=== PATIENT | female | born 1930 | race Caucasian/White ===

== ENCOUNTER 2016-08-26 09:57 | Inpatient (IN) | payer OTHER ==
[~2016-08-26] VITALS: Ht 147.3 cm; Wt 63.5 kg
[~2016-08-26 09:57] MED LIST: ASPIR LOW81 MG PO; ATIVAN0.5 M1 PO; CLINDAMYCIN300 M1 PO; COLACE100 MG PO; DIOVAN40 MG PO; FERROUS SULFAT325 M2 PO; FUROSEMIDE20 MG; FUROSEMIDE20 MG PO; FUROSEMIDE40 MG PO; HYDRALAZINE HCL25 MG; HYDRALAZINE HCL25 MG PO; L40 PO; LAC PO; LASIX20 MG PO; LEVAQUIN750 MG PO; MEVACOR40 MG PO; PLA75 PO; POTASSIUM CHLO10 MEQ; POTASSIUM CHLO20 ME1 PO; PRILOSEC20 MG PO; PRILOSEC40 MG PO; PROVENTIL0.09 MG/A1; Q-PAP ES500 M1 PO; QPAP; SOD1 PO; VITC PO; [UNRECOGNIZED DRUG - OTHER]; [UNRECOGNIZED DRUG - OTHER]
[2016-08-26 11:08] LABS: BASOPHIL % 0.4 % (0-2); PLATELET COUNT 270 x10^3mcL (130-400); RED CELL DISTRIBUTION WIDTH 14.5 % (11.5-14.5)
[2016-08-26 11:12] LABS: UA SPECIFIC GRAVITY 1.015 (1.005-1.035); microscopic required? YES; urine erythrocyte NEGATIVE (NEGATIVE)
[2016-08-26 11:21] LABS: CALCIUM 8.2 mg/dL (8.5-10.1); CARBON DIOXIDE 20.2 mmol/L (21-32); CHLORIDE SERUM 95 mmol/L (98-107); GLUCOSE SERUM 92 mg/dL (74-106); POTASSIUM SERUM 4.4 mmol/L (3.5-5.1); SODIUM SERUM 126 mmol/L (136-145)
[2016-08-26 11:30] LABS: ALBUMIN 3.5 g/dL (3.4-5.0); ALKALINE PHOSPHATASE 131 U/L (46-116); ALT/SGPT 17 U/L (14-59); AST/SGOT 23 U/L (15-37); BILIRUBIN TOTAL 1.25 mg/dL (0.20-1.00); TOTAL PROTEIN, SERUM 7.1 g/dL (6.4-8.2)
[2016-08-26 11:36] LABS: CK-MB 2.3 ng/mL (0-3.6)
[2016-08-26] MEDS ORDERED: CLOPIDOGREL75 M1 PO (13:14)
[2016-08-26] MEDS ORDERED: GOOD SENSE OMEP20 MG PO (13:14)
[2016-08-26] MEDS ORDERED: COLACE100 MG PO (13:14)
[2016-08-26] MEDS ORDERED: BENICAR HCT1 TAB PO (13:14)
[2016-08-26] MEDS ORDERED: HYDRALAZINE HCL25 MG PO (13:14)
[2016-08-26] MEDS ORDERED: FUROSEMIDE40 MG PO (13:14)
[2016-08-26] MEDS ORDERED: LOVASTATIN40 MG PO (13:15)
[2016-08-26] MEDS ORDERED: POTASSIUM CHLO20 ME1 PO (13:15)
[2016-08-26 14:02] VITALS: BP 122/67
[2016-08-26 14:11] VITALS: Ht 147.3 cm; Wt 63.5 kg
[2016-08-26 14:30] LABS: MAGNESIUM 2.2 mg/dL (1.8-2.4); PHOSPHOROUS 5.8 mg/dL (2.5-4.9)
[2016-08-26 14:33] LABS: T3 TOTAL 0.73 ng/mL
[2016-08-26 14:48] LABS: CHOLESTEROL/HDL RATIO 1.8
[2016-08-26 15:05] LABS: FREE T4 1.32 ng/dL (0.76-1.46); FREE THYROXINE INDEX 1.8 ug/dL (1.4-4.5); T4(THYROXINE) 4.8 ug/dL (4.7-13.3)
[2016-08-26 16:15] LABS: CARBON DIOXIDE 23.7 mmol/L (21-32); CHLORIDE SERUM 95 mmol/L (98-107); CREATININE SERUM 1.2 mg/dL (0.6-1.0); GLUCOSE SERUM 149 mg/dL (74-106); POTASSIUM SERUM 4.3 mmol/L (3.5-5.1); SODIUM SERUM 127 mmol/L (136-145)
[2016-08-26] MEDS ORDERED: ISOSORBIDE MONO30 MG PO (16:39)
[2016-08-26 17:01] VITALS: BP 123/56
[2016-08-26 21:47] VITALS: BP 135/48
[2016-08-27 02:45] VITALS: BP 136/49
[2016-08-27 05:32] VITALS: BP 103/43
[2016-08-27 06:06] LABS: BASOPHIL % 0.3 % (0-2); PLATELET COUNT 235 x10^3mcL (130-400)
[2016-08-27 06:32] LABS: CALCIUM 8.4 mg/dL (8.5-10.1); CARBON DIOXIDE 25.3 mmol/L (21-32); CHLORIDE SERUM 97 mmol/L (98-107); GLUCOSE SERUM 81 mg/dL (74-106); PHOSPHOROUS 3.6 mg/dL (2.5-4.9); POTASSIUM SERUM 4.7 mmol/L (3.5-5.1); SODIUM SERUM 131 mmol/L (136-145)
[2016-08-27 06:40] LABS: RED CELL DISTRIBUTION WIDTH 14.9 % (11.5-14.5)
[2016-08-27 09:44] VITALS: BP 107/58
[2016-08-27 16:56] VITALS: BP 113/49
[2016-08-27 21:24] VITALS: BP 126/58
[2016-08-28 05:41] VITALS: BP 112/60
[2016-08-28 06:28] LABS: CALCIUM 8.1 mg/dL (8.5-10.1); CARBON DIOXIDE 24.4 mmol/L (21-32); CHLORIDE SERUM 97 mmol/L (98-107); GLUCOSE SERUM 91 mg/dL (74-106); POTASSIUM SERUM 3.6 mmol/L (3.5-5.1); SODIUM SERUM 135 mmol/L (136-145)
[2016-08-28 07:31] LABS: BASOPHIL % 0.3 % (0-2); PLATELET COUNT 239 x10^3mcL (130-400)
[2016-08-28 07:32] LABS: RED CELL DISTRIBUTION WIDTH 14.9 % (11.5-14.5)
[2016-08-28 07:40] VITALS: BP 120/60
[2016-08-28 10:04] VITALS: BP 120/60
[2016-08-28] MEDS ORDERED: CIPRO250 MG PO (10:06)
[2016-08-28] MEDS ORDERED: LAC PO (10:07)
[2016-08-28 10:24] VITALS: BP 120/60
[2016-08-28] MEDS ORDERED: ROBDML PO (12:05)
== END 2016-08-28 13:38 | disposition home or self-care (01) | DRG 291 ==
LOC: ED 09:57 → DU 13:06
PROVIDERS: Emergency Medicine; ADMIT Family Medicine
DX: I11.0 Hypertensive heart disease with heart failure (principal); N17.0 Acute kidney failure with tubular necrosis; N39.0 Urinary tract infection, site not specified; E87.1 Hypo-osmolality and hyponatremia; I50.43 Acute on chronic combined systolic (congestive) and diastolic (congestive) heart failure; I35.1 Nonrheumatic aortic (valve) insufficiency; M41.9 Scoliosis, unspecified; E83.39 Other disorders of phosphorus metabolism; E78.5 Hyperlipidemia, unspecified; D63.8 Anemia in other chronic diseases classified elsewhere; Z68.29 Body mass index [BMI] 29.0-29.9, adult; Z99.81 Dependence on supplemental oxygen; Z95.0 Presence of cardiac pacemaker
CPT/HCPCS: 83880; 84439; 97110-GP; 97116-GP; 97530-GP; J0696; J1940; J7620; Q0092

== ENCOUNTER 2016-10-02 14:51 | Inpatient (IN) | payer OTHER ==
[~2016-10-02] VITALS: Ht 137.2 cm; Wt 66.2 kg
[~2016-10-02 14:51] MED LIST changes: +BENICAR HCT1 TAB PO; +CIPRO250 MG PO; +CLOPIDOGREL75 M1 PO; +GOOD SENSE OMEP20 MG PO; +ISOSORBIDE MONO30 MG PO; +LOVASTATIN40 MG PO; +ROBDML PO
[2016-10-02 15:56] LABS: BASOPHIL % 1.1 % (0-2); PLATELET COUNT 284 x10^3mcL (130-400); RED CELL DISTRIBUTION WIDTH 14.1 % (11.5-14.5)
[2016-10-02 16:19] LABS: ALKALINE PHOSPHATASE 141 U/L (46-116); ALT/SGPT 14 U/L (14-59); AST/SGOT 24 U/L (15-37); BILIRUBIN TOTAL 1.4 mg/dL (0.20-1.00); CARBON DIOXIDE 23.3 mmol/L (21-32); CHLORIDE SERUM 91 mmol/L (98-107); CREATININE SERUM 1.2 mg/dL (0.6-1.0); GLUCOSE SERUM 119 mg/dL (74-106); POTASSIUM SERUM 4.5 mmol/L (3.5-5.1); SODIUM SERUM 125 mmol/L (136-145); TOTAL PROTEIN, SERUM 7.1 g/dL (6.4-8.2)
[2016-10-02 16:26] LABS: ALBUMIN 3.3 g/dL (3.4-5.0); CHOLESTEROL 51 mg/dL (<200); HDL CHOLESTEROL 24 mg/dL (40-60)
[2016-10-02 18:39] VITALS: BP 76/40
[2016-10-02 18:48] VITALS: Ht 137.2 cm; Wt 66.2 kg
[2016-10-02 19:01] LABS: FREE T4 1.33 ng/dL (0.76-1.46); FREE THYROXINE INDEX 2.2 ug/dL (1.4-4.5); T4(THYROXINE) 5.6 ug/dL (4.7-13.3)
[2016-10-02 19:02] LABS: T3 TOTAL 0.67 ng/mL
[2016-10-02 19:25] LABS: microscopic required? NO
[2016-10-02 19:33] LABS: urine erythrocyte NEGATIVE (NEGATIVE)
[2016-10-02 20:24] LABS: CHOLESTEROL/HDL RATIO 2.1
[2016-10-02 20:59] VITALS: BP 84/37
[2016-10-02 22:00] VITALS: BP 86/52
[2016-10-03 06:08] LABS: BASOPHIL % 0.9 % (0-2); PLATELET COUNT 256 x10^3mcL (130-400)
[2016-10-03 06:14] VITALS: BP 95/58
[2016-10-03 06:25] LABS: RED CELL DISTRIBUTION WIDTH 15.7 % (11.5-14.5)
[2016-10-03 06:35] LABS: CALCIUM 8.4 mg/dL (8.5-10.1); CARBON DIOXIDE 23.5 mmol/L (21-32); CHLORIDE SERUM 91 mmol/L (98-107); CREATININE SERUM 1.3 mg/dL (0.6-1.0); GLUCOSE SERUM 99 mg/dL (74-106); MAGNESIUM 1.9 mg/dL (1.8-2.4); PHOSPHOROUS 4.1 mg/dL (2.5-4.9); POTASSIUM SERUM 3.9 mmol/L (3.5-5.1); SODIUM SERUM 125 mmol/L (136-145)
[2016-10-03 10:17] VITALS: BP 103/64
[2016-10-03 17:56] VITALS: BP 98/40
[2016-10-03 21:38] VITALS: BP 115/47
[2016-10-04 05:39] VITALS: BP 95/60
[2016-10-04 08:18] LABS: BASOPHIL % 0.7 % (0-2); PLATELET COUNT 266 x10^3mcL (130-400)
[2016-10-04 08:19] LABS: RED CELL DISTRIBUTION WIDTH 15.4 % (11.5-14.5)
[2016-10-04 08:35] LABS: CALCIUM 8.7 mg/dL (8.5-10.1); CHLORIDE SERUM 93 mmol/L (98-107); CREATININE SERUM 1.4 mg/dL (0.6-1.0); GLUCOSE SERUM 105 mg/dL (74-106); MAGNESIUM 2.3 mg/dL (1.8-2.4); SODIUM SERUM 130 mmol/L (136-145)
[2016-10-04 09:22] VITALS: BP 93/58
[2016-10-04 14:00] VITALS: BP 91/44
[2016-10-04 17:37] VITALS: BP 106/53
[2016-10-04 21:26] VITALS: BP 98/64
[2016-10-05 06:10] VITALS: BP 106/45
[2016-10-05 06:47] LABS: BASOPHIL % 0.5 % (0-2); PLATELET COUNT 247 x10^3mcL (130-400)
[2016-10-05 07:06] LABS: CALCIUM 8.6 mg/dL (8.5-10.1); CARBON DIOXIDE 26.5 mmol/L (21-32); CHLORIDE SERUM 95 mmol/L (98-107); CREATININE SERUM 1.1 mg/dL (0.6-1.0); GLUCOSE SERUM 83 mg/dL (74-106); POTASSIUM SERUM 3.2 mmol/L (3.5-5.1); SODIUM SERUM 132 mmol/L (136-145)
[2016-10-05 09:36] VITALS: BP 115/71
[2016-10-05 13:31] VITALS: BP 114/62
[2016-10-05 17:54] VITALS: BP 99/44
[2016-10-05 17:57] VITALS: BP 94/50
[2016-10-05 20:52] VITALS: BP 105/63
[2016-10-06 05:53] VITALS: BP 104/67
[2016-10-06 06:52] LABS: BASOPHIL % 0.7 % (0-2); PLATELET COUNT 244 x10^3mcL (130-400)
[2016-10-06 06:55] LABS: RED CELL DISTRIBUTION WIDTH 15.1 % (11.5-14.5)
[2016-10-06 06:59] LABS: CALCIUM 8.3 mg/dL (8.5-10.1); CARBON DIOXIDE 25.4 mmol/L (21-32); CHLORIDE SERUM 95 mmol/L (98-107); GLUCOSE SERUM 80 mg/dL (74-106); POTASSIUM SERUM 3.5 mmol/L (3.5-5.1); SODIUM SERUM 132 mmol/L (136-145)
[2016-10-06 09:50] VITALS: BP 121/74
[2016-10-06] MEDS ORDERED: FLO4 PO (13:08)
[2016-10-06] MEDS ORDERED: COL100 PO (13:09)
[2016-10-06] MEDS ORDERED: FIORICET1 CAP PO (13:10)
[2016-10-06 13:40] VITALS: BP 98/55
[2016-10-06 14:05] VITALS: BP 121/74
== END 2016-10-06 15:18 | disposition home health service (06) | DRG 291 ==
LOC: ED 14:51 → DU 16:52 → MU 10-06 11:30
PROVIDERS: Emergency Medicine; ADMIT Family Medicine
DX: I11.0 Hypertensive heart disease with heart failure (principal); N17.0 Acute kidney failure with tubular necrosis; E87.1 Hypo-osmolality and hyponatremia; E44.0 Moderate protein-calorie malnutrition; I50.43 Acute on chronic combined systolic (congestive) and diastolic (congestive) heart failure; R51 Headache; J44.9 Chronic obstructive pulmonary disease, unspecified; I48.2 Chronic atrial fibrillation; I35.0 Nonrheumatic aortic (valve) stenosis; I25.10 Atherosclerotic heart disease of native coronary artery without angina pectoris; I27.2 Other secondary pulmonary hypertension; E80.6 Other disorders of bilirubin metabolism; D63.8 Anemia in other chronic diseases classified elsewhere; E66.9 Obesity, unspecified; Z68.35 Body mass index [BMI] 35.0-35.9, adult; Z86.73 Personal history of transient ischemic attack (TIA), and cerebral infarction without residual deficits; Z95.0 Presence of cardiac pacemaker; Z99.81 Dependence on supplemental oxygen
CPT/HCPCS: 36600; 83880; 84439; 94150; J1940; J2270; J2405; J7030; Q0092

== ENCOUNTER 2016-10-13 10:43 | Inpatient (IN) | payer OTHER ==
[~2016-10-13] VITALS: Ht 137.2 cm; Wt 72.1 kg
[~2016-10-13 10:43] MED LIST changes: +COL100 PO; +FIORICET1 CAP PO; +FLO4 PO
--- NOTE | 2016-10-13 11:02 | NUR ---
DR. GRAHAM PERFORMED MSE
[2016-10-13 11:20] LABS: BASOPHIL % 0.9 % (0-2); PLATELET COUNT 274 x10^3mcL (130-400)
--- NOTE | 2016-10-13 11:20 | NUR ---
PT TO CT [facility]IA [facility]; MEDICATED WITH ZOFRAN AND FENTANYL PRIOR
--- NOTE | 2016-10-13 11:36 | NUR ---
PT RETURNED FROM CT REPORTS SOME PAIN RELIEF AT THIS TIME, NO LONGER RESTLESS, INTIATED CALCIUM GLUCONATE IVPB FOR HELP WITH MUSCLE CRAMPING AND SPASMS
[2016-10-13 11:49] LABS: ALBUMIN 3.4 g/dL (3.4-5.0); ALKALINE PHOSPHATASE 117 U/L (46-116); ALT/SGPT 24 U/L (14-59); AST/SGOT 31 U/L (15-37); BILIRUBIN TOTAL 1.35 mg/dL (0.20-1.00); CALCIUM 8.3 mg/dL (8.5-10.1); CARBON DIOXIDE 17.9 mmol/L (21-32); CHLORIDE SERUM 90 mmol/L (98-107); CREATININE SERUM 2.3 mg/dL (0.6-1.0); GLUCOSE SERUM 120 mg/dL (74-106); MAGNESIUM 2.5 mg/dL (1.8-2.4); TOTAL PROTEIN, SERUM 6.9 g/dL (6.4-8.2)
--- NOTE | 2016-10-13 11:50 | NUR ---
PT SLEEPING, EASILY AROUSABLE, NO ACUTE DISTRESS, PT CALM AND APPEARS COMFORTABLE, FAMILY AT BEDSIDE
[2016-10-13 12:01] LABS: HDL CHOLESTEROL 27 mg/dL (40-60); POTASSIUM SERUM 5.6 mmol/L (3.5-5.1); SODIUM SERUM 123 mmol/L (136-145)
[2016-10-13 12:09] LABS: CHOLESTEROL 46 mg/dL (<200)
--- NOTE | 2016-10-13 13:11 | NUR ---
PT MEDICATED PT PER ORDER WITH KAYEXALATE AND D50 WITH INSULIN FOR ELEVATED K+ LEVEL, PT IV PATENT, FLUSHES WITH EASE AND BLOOD RETURN NOTED IN IV CANNULA, PT REPORTS DISCOMFORT AT IV SITE, TOLD PT I COULD START A NEW IV AND D/C CURRENT ONE BUT PT REFUSED; EDUCATED PT ABOUT DISCORT WITH D50 AMP, PT TOLERATED, NO S/S INFILTRATION OR REDNESS
--- NOTE | 2016-10-13 13:13 | NUR ---
REPORT RECEIVED FROM HEMA Reich RN, AND CARE ASSUMED FOR THIS PT.
[2016-10-13] MEDS ORDERED: BENICAR HCT1 TAB PO ×2 (13:19→13:25)
[2016-10-13] MEDS ORDERED: HYDRALAZINE HCL25 MG PO (13:19)
[2016-10-13] MEDS ORDERED: GOOD SENSE OMEP20 MG PO (13:19)
[2016-10-13] MEDS ORDERED: CLOPIDOGREL75 M1 PO (13:20)
[2016-10-13] MEDS ORDERED: DOC-Q-LACE100 MG PO (13:20)
[2016-10-13] MEDS ORDERED: LASIX40 MG PO (13:20)
[2016-10-13] MEDS ORDERED: KLOR-CON20 MEQ PO (13:22)
[2016-10-13] MEDS ORDERED: TAMSULOSIN HYD0.4 M1 PO (13:22)
[2016-10-13] MEDS ORDERED: LOVASTATIN40 MG PO (13:23)
[2016-10-13] MEDS ORDERED: MELATONIN3 MG PO (13:23)
--- NOTE | 2016-10-13 13:27 | NUR ---
PT HYPOTENSIVE, DR. GRAHAM NOTIFIED, VERBAL ORDER FOR 250ML NS BOLUS; INITIATED BOLUS, PT ASSISTED ONTO BED JULIAN FOR BM
[2016-10-13 13:50] LABS: PHOSPHOROUS 5.2 mg/dL (2.5-4.9)
--- NOTE | 2016-10-13 13:53 | NUR ---
D/C IV TO LEFT HAND DUE TO COMPLAINT OF PAIN, NO S/S INFILTRATION; INITIATED NEW IV TO RIGHT HAND
[2016-10-13 13:56] LABS: CHOLESTEROL/HDL RATIO 1.7
--- NOTE | 2016-10-13 13:56 | NUR ---
CALLED TO GIVE NEIL REPORT, STATES THAT SHE WILL CALL BACK
[2016-10-13 13:58] LABS: T3 TOTAL 0.51 ng/mL
[2016-10-13 13:59] LABS: FREE T4 1.4 ng/dL (0.76-1.46); FREE THYROXINE INDEX 2.2 ug/dL (1.4-4.5); T4(THYROXINE) 5.7 ug/dL (4.7-13.3)
--- NOTE | 2016-10-13 14:06 | NUR ---
NOTIFIED DR. GRAHAM OF BP AFTER 250ML NS BOLUS, OKAY FOR PT TO GO UPSTAIRS PER DR. GRAHAM, AWAITING CALL BACK FROM RN FOR REPORT
--- NOTE | 2016-10-13 14:49 | NUR ---
PT HAD LARGE, LOOSE BROWN BOWEL MOVEMENT IN BED. PT CLEANED, NEW GOWN AND SHEET PLACED W/ CHUCKS UNDER PT. NO SKIN BREAKDOWN NOTED TO PERINEUM WHILE CLEANING.
--- NOTE | 2016-10-13 14:55 | NUR ---
REPORT TO [facility] CAN TO ASSUME CARE OF PT, PT TO BE TRANSFERRED TO ROOM 244A
--- NOTE | 2016-10-13 14:55 | NUR ---
RECEIVED PT FROM ED VIA [employer], CAME IN DUE TO HEADACHE AND BODY ACHES. AAOX4. C/O 11/21 HEADACHE. MILD SOB NOTED, ON 2LPM/NC, O2 SAT=97%, LUNG SOUNDS DIMINISHED ON THE BASES. DENIES CHEST PAIN/PRESSURE, AFIB ON THE MONITOR. W/ LEFT UPPER CHEST PACEMAKER. DENIES ABDOMINAL PAIN/NAUSEA/VOMITING. W/ LOOSE BM'S, PT HAD KAYEXALATE AT ED. W/ DARK DISCOLORATION AND SCRATCHES ON BUE, BLE AND CHEST AREA. SIDE RAILS UPX2. CALL LIGHT ON REACH. HOB ELEVATED AT 40 DEG. ENDORSED
--- NOTE | 2016-10-13 14:55 | NUR ---
RECEIVED PT FROM ED. PT CAME IN WITH HEADACHE AND BODY ACHES. PT IS A/OX4. MILD SOB NOTED ON 2 L NC, 02 SAT AT 97 %. LUNGS DIMINISHED ON BASES. PT DENIES CHEST PAIN AT THIS TIME. TELE 44, AFIB ON MONITOR WITH LEFT UPPER CHEST PACEMAKER. PT HAD LOOSE BM DUE TO THE KAYEXALATE THAT WAS EVEN TO HER IN THE ER. WILL CONTINUE PLAN OF CARE.
--- NOTE | 2016-10-13 15:21 | NUR ---
DR. SIDHU MADE AWARE THAT 1ST READING OF BP=83/46 (MAP=64), 2ND READING BP=91/41 (MAP=61) AND 3RD READING BP=85/49 (MAP=61).
[2016-10-13 15:23] VITALS: BP 91/41
[2016-10-13 15:31] VITALS: Ht 137.2 cm; Wt 72.1 kg
--- NOTE | 2016-10-13 15:38 | NUR ---
DR. SIDHU AT BEDSIDE AND MADE AWARE THAT LACTIC ACID=3.6.
[2016-10-13 17:19] LABS: CALCIUM 8.4 mg/dL (8.5-10.1); CARBON DIOXIDE 23.2 mmol/L (21-32); CHLORIDE SERUM 93 mmol/L (98-107); CREATININE SERUM 2.3 mg/dL (0.6-1.0); GLUCOSE SERUM 76 mg/dL (74-106); SODIUM SERUM 128 mmol/L (136-145)
--- NOTE | 2016-10-13 18:23 | NUR ---
PT C/O PAIN 8/10 IN LOWER LEFT AND RIGHT LEGS. MEDICATED WITH MORPHINE. WILL CONTINUE TO MONITOR PT DISCOMFORT.
--- NOTE | 2016-10-13 19:07 | NUR ---
PT IS RESTING IN BED WITH FAMILY BY HER SIDE. VS INFUSING AT 150 ML/HR , NO SWELLING OR REDNESS NOTED AT SITE. PT BREATHING EVEN WITH MILD SOB. PT ON 2L O2, NC. VS STABLE. NO RESP DISTRESS NOTED. PT DENIES CHEST PAIN AND SHAKINESS. WILL ENDORSE PT TO INCOMING NURSE. CALL LIGHT IN REACH. BED IN LOW POSITION.
--- NOTE | 2016-10-13 19:43 | NUR ---
RECEIVED PT FROM PREVIOUS SHIFT. PT A/OX4. SLOVAK SPEAKING. DENIES PAIN. DENIES SOB ON RA. IV PATENT. CALL LIGHT WITHIN REACH, BED IN LOW POSITION. FAMILY AT BEDSIDE. WILL CONTINUE TO MONITOR.
[2016-10-13 21:26] VITALS: BP 97/51
[2016-10-14] VITALS (7 sets, daily range): BP systolic 84–114; BP diastolic 31–73
--- NOTE | 2016-10-14 01:31 | NUR ---
PT RESTING AT THIS TIME IN NO ACUTE DISTRESS. RR EVEN AND UNLABORED. IV PATENT. BED IN LOW POSITION, WILL CONTINUE TO MONITOR. WILL CONTINUE TO MONITOR.
--- NOTE | 2016-10-14 05:08 | NUR ---
INFORMED OF BP 103/21, MAP 48. NO FURTHER ORDERS AT THIS TIME.
--- NOTE | 2016-10-14 05:14 | NUR ---
DR Macario AND DR LIMON AT BEDSIDE ASSESSING PT
--- NOTE | 2016-10-14 06:17 | NUR ---
DR GIRON AT BEDSIDE DISCUSSING PLAN OF CARE WITH FAMILY. BP UPON RECHECK 103/35, MAP 43. PER DR GIRON, PT IS TO BE TRANSFERRED TO ICU AT THIS TIME. FAMILY HESITENT TO DISCUSS CODE STATUS AT THIS TIME. WAITING FOR PT'S SON TO ARRIVE TO DISCUSS CODE STATUS OPTION WITH WHOLE FAMILY AND PATIENT. REPORT CALLED TO NEYMAR IN ICU. WILL TRANSFER PT TO ICU BED 6 AT THIS TIME.
--- NOTE | 2016-10-14 06:25 | NUR ---
[facility] ARMENIAN SPEAKING,WITH 02 AT 3 LITERS PER NASAL CANNULA, N OT IN RESPIRATORY DISTRESS, MILD SOB ON EXERTION, WITH IVF NS AT 150ML PER HOUR INFUSING, IV SITE ON THE RIGHT HAND PATENT AND INTACT GAUGE 24. PATIENT WAS REORIENTED TO FLOOR, FAMILY MEMBERS ALLOWED TO VISIT BEFORE CHABGE OF SHIFT.
[2016-10-14 06:33] LABS: CALCIUM 8.1 mg/dL (8.5-10.1); CARBON DIOXIDE 17.1 mmol/L (21-32); CHLORIDE SERUM 94 mmol/L (98-107); CREATININE SERUM 2.5 mg/dL (0.6-1.0); GLUCOSE SERUM 77 mg/dL (74-106); MAGNESIUM 2.4 mg/dL (1.8-2.4); PHOSPHOROUS 6.6 mg/dL (2.5-4.9); POTASSIUM SERUM 5.1 mmol/L (3.5-5.1); SODIUM SERUM 127 mmol/L (136-145)
--- NOTE | 2016-10-14 07:12 | NUR ---
LATEST BUN RESULT WAS 78 PREVIOUS ONE WAS 77, WILL NOTIFY ROUNDING MD.
--- NOTE | 2016-10-14 07:16 | NUR ---
CANCELLATION REQUESTED FOR ECHOCARDIOGRAM
[2016-10-14 07:29] LABS: BASOPHIL % 1.5 % (0-2); PLATELET COUNT 254 x10^3mcL (130-400)
--- NOTE | 2016-10-14 07:30 | NUR ---
RECEIVED PT ALERT AND AWAKE X 4, OPENS EYES SPONTANEOUSLY. PT IS VERBAL AND ABLE TO MAKE NEEDS KNOWN. PT IS A WELSH SPEAKER. PT HAS HX OF HTN, CHF, PACEMAKER, AORTIC STENOSIS. PUPILS 2MM BILAT, BRISK REACTION TO LIGHT. NO DRAINAGE FROM EYES/EARS/NARES. EASY AND UNLABORED BREATHING OBSERVED VIA NASAL CANNULA 3L. RT HAND IV CDI, PATENT AND FLUSHING WELL. NS INFUSING @ 75ML/HR, PERIPHERAL PULSES BUE MODERATE, BLE WEAK. CAP REFILL BLE/BUE <3 SECONDS. LUNG SOUNDDS CLEAR BUL, DIMINISHED BLL. ACTIVE BOWEL SOUNDS X 4. BEDSIDE COMMODE IN ROOM, CONKLIN CATHETER TO BE PLACED PER DR ORDER. SKIN FRAGILE, THIN, INTACT, DRY, WTT. DARK DISCOLORATION TO BUE/CHEST/BLE NOTED. NO PAIN AT THIS TIME. VITAL SIGNS AT THIS TIME: HR 66 O2 100% BP 100/50 MAP 66, RR 18, TEMP 97.7 BED ON LOWEST POSITION. CALL LIGHT WITHIN REACH.
--- NOTE | 2016-10-14 07:30 | NUR ---
RECEIVED RESTING IN BED. AWAKE, ALERT AND ORIENTED X 3. NO REPORT OF PAIN OR ANY DISCOMFORT. RESPIRATION IS EVEN AND UNLABORED . ON O2 AT 3L/M VIA NC. B/P WAS STILL BEING MONITORED FOR HYPOTENSION LATEST B/P /. TELEMETRY SHOWS PACED RYTHM AT 50. GRAND DAUGHTER AT BEDSIDED. ENCOURAGED PATIENT AND FAMILY TO ASK FOR ASST. NEEDED.
[2016-10-14 07:34] LABS: RED CELL DISTRIBUTION WIDTH 14.9 % (11.5-14.5)
--- NOTE | 2016-10-14 08:39 | NUR ---
DR. DEL ROSARIO WAS INFORMED OF BUN 78. NO NEW ORDER AT THIS TIME.
--- NOTE | 2016-10-14 08:45 | NUR ---
DR BARBOZA, RESIDENTS AND MYSELF ROUNDING AT THIS TIME. POC AND PATIENT UPDATE PROVIDED TO PATIENT AND FAMILY BEDSIDE WITH ALL QUESTIONS AND CONCERNS ADDRESSED.
--- NOTE | 2016-10-14 09:11 | NUR ---
DR BARBOZA IN ICU BREAKROOM SPEAKING WITH PATIENT'S FAMILY REGARDING CODE STATUS. FAMILY TO HAVE DISCUSSION AMONGST THEMSELVES AND WITH PATIENT REGARDING POC. ALL QUESTIONS AND CONCERNS ADDRESSED.
--- NOTE | 2016-10-14 14:11 | NUR ---
DR. WATKINS AND DR. SHAH SAW AND TALKED TO PATIENT AND FAMILY MEMBERS.
--- NOTE | 2016-10-14 15:41 | NUR ---
ROBAXIN 500MG PO GIVEN FOR UPPER BACK AND SHOULDER PAIN (09/21) THAT WAS DESCRIBED AN ACHE AND CONSTANT.
--- NOTE | 2016-10-14 16:14 | NUR ---
DR BONILLA CHANGED PATIENT'S CODE STATUS PER FAMILY WISHES. PATIENT TO BE MODIFIED CODE WITH DEFIB/CARIDOVERSION, BIPAP AND PRESSORS ONLY. NO ACLS DRUGS, CHEST COMPRESSIONS OR INTUBATION PER VALENTINA FRENCH PATIENT'S SON.
--- NOTE | 2016-10-14 17:55 | NUR ---
DR SHIPLEY AT BEDSIDE TO ASSESS PATIENT. PATIENT UPDATE PROVIDED TO PATIENT'S SON VALENTINA AND DAUGHTER MILADIS BEDSIDE. PATIENT'S FAMILY HAS DECIDED AGAINST ANY DIALYSIS S/P CONVERSATION WITH DR SHIPLEY. ALL QUESTIONS AND CONCERNS ADDRESSED.
--- NOTE | 2016-10-14 19:56 | NUR ---
DR. BARBOZA AT BEDSIDE, UPDATES PROVIDED. NO NEW ORDERS RECEIVED.
--- NOTE | 2016-10-14 21:45 | NUR ---
CONKLIN CATHETER PLACED PER DR ORDER. PT TOLERATED PROCEDURE WELL. DRAINING YELLOW URINE TO GRAVITY DRAINAGE BAG. 10ML OF YELLOW URINE OBTAINED FOR URINE CULTURE AND SENT TO LAB.
[2016-10-14 21:56] LABS: UA SPECIFIC GRAVITY 1.025 (1.005-1.035); microscopic required? YES; urine erythrocyte NEGATIVE (NEGATIVE)
--- NOTE | 2016-10-14 22:00 | NUR ---
PT OXYGEN VIA NASAL CANNULA TITRATED DOWN TO 2L DUE TO CONSECUTIVE O2 READINGS OF 99%-100% OXYGEN SATURATION. PT TOLERATING 2L NASAL CANNULA, WILL CONTINUE TO MONITOR.
[2016-10-14 22:05] LABS: AMPHETAMINE QUAL UR NONE DETECTED (NEG <=1000)
[2016-10-15 03:45] VITALS: BP 88/47
--- NOTE | 2016-10-15 04:00 | NUR ---
PT TEMP 96.7. AIR CONDITIONER TURNED OFF, WARM BLANKETS APPLIED
--- NOTE | 2016-10-15 05:15 | NUR ---
ACCOUNTING BOOKKEEPER AT BEDSIDE FOR MORNING LAB DRAW.
[2016-10-15 05:55] LABS: BASOPHIL % 0.4 % (0-2); PLATELET COUNT 258 x10^3mcL (130-400)
[2016-10-15 05:56] LABS: RED CELL DISTRIBUTION WIDTH 16.2 % (11.5-14.5)
--- NOTE | 2016-10-15 06:05 | NUR ---
DR. PETIT AT BEDSIDE, QUESTIONS AND CONCERNS ADDRESSED BEDSIDE.
[2016-10-15 06:14] LABS: CALCIUM 8.2 mg/dL (8.5-10.1); CHLORIDE SERUM 95 mmol/L (98-107); CREATININE SERUM 2.7 mg/dL (0.6-1.0); GLUCOSE SERUM 78 mg/dL (74-106); MAGNESIUM 2.5 mg/dL (1.8-2.4); PHOSPHOROUS 7.4 mg/dL (2.5-4.9); POTASSIUM SERUM 5.3 mmol/L (3.5-5.1); SODIUM SERUM 128 mmol/L (136-145)
--- NOTE | 2016-10-15 07:14 | NUR ---
PATIENT COMPLAINING OF SEVERE PAIN WITH CONKLIN CATHETER. PER PATIENT REQUEST, CONKLIN CATHETER REMOVED AT THIS TIME. WILL NOTIFIED RESIDENT OF REMOVAL.
[2016-10-15 07:55] VITALS: BP 97/47
--- NOTE | 2016-10-15 07:55 | NUR ---
RECEIVED PT IN BED. ASSESSED AND WILL DOCUMENT. DENIES PAIN THIS TIME. NO SOB NOTED. NO DISTRESS NOTED. SAFTEY PRECAUTIONS ON. WILL MONITOR.
--- NOTE | 2016-10-15 08:20 | NUR ---
INFORMED RESIDENT DOCTOR ABOUT K=5.3,BUN/CREAT AND OTHER ABNORMAL LABS. NO NEW ORDER RECEIVED THIS TIME.
--- NOTE | 2016-10-15 08:40 | NUR ---
AND RESIDENTS DID ROUNDS. EXPLAINED THE PLAN OF CARE.
--- NOTE | 2016-10-15 10:39 | NUR ---
PT IS IN STABLE CONDITION AND IS TRANSFERING TO 209B PER DOCTOR ORDER WITH SAME NURSE.
--- NOTE | 2016-10-15 10:56 | NUR ---
PATIENT'S TO BE TRANSFERRED TO 209B WITH [facility]. PATIENT'S FAMILY AT BEDSIDE AND MADE AWARE OF TRANSFER. PATIENT PROVIDED BED BATH AND AMBULATED TO WHEELCHAIR TO TRANSFER BY [facility], [facility] AND [facility]. PATIENT TRANSFERRED WITH ALL PERSONAL BELONGINGS AT THIS TIME.
[2016-10-15 12:00] VITALS: BP 109/44
--- NOTE | 2016-10-15 12:00 | NUR ---
PT IS IN 209B,STABLE CONDITION .VITAL SIGNS CHECKED,STABLE AND DOCUMENTED. DENIES PAIN. FAMILY AT BEDSIDE.
[2016-10-15 18:30] VITALS: BP 88/47
--- NOTE | 2016-10-15 18:30 | NUR ---
BP=88/47 WITH MAP 60.INFORMED (RESIDENT) ABOUT THAT.PT IS ASYMPTAMATIC.PT IS C/O BACK AND NECK MUSCLE SPASAM,INFORMED RESIDENT.HE SAID HE WILL PUT ORDERS.
--- NOTE | 2016-10-15 19:05 | NUR ---
PT RESTING IN BED.STABLE.GAVE REPORT TO NEXT SHIFT NURSE.
--- NOTE | 2016-10-15 19:47 | NUR ---
SHIFT REASSESSMENT DONE.PATIENT A/O X 4.FAMILY AT BEDSIDE,SUPPORTIVE OF CARE.PATIENT JUST CAME FROM ICU/TRANSFER.TELE 3 PACED.O2 AT 2 LITERS.MILD GEN WEAKNESS,FALL PRECAUTION.NS AT 50 CC/ HOUR.NEW BAG FROM DAY SHIFT.TELE 3 100% PACED.SKIN INTACT.BUE DISCOLORATION NOTED.SCD INTACT.PATIENT WANTED HER ROOM NO AIRCON.ITS KIND OF WARM.CALL LIGHT IN REACH.
--- NOTE | 2016-10-15 20:56 | NUR ---
BLOOD SUGAR 77.GIVEN APPLE SAUCE AND ALSO APPLE JUICE DRANK WELL.FAMILY AT BEDSIDE AND SUPPORTIVE OF CARE.ASSIST WITH HER ADLS AT THIS TIME.NS AT 50 CC/ HOUR,IV SITE GOOD.
[2016-10-15 20:58] VITALS: BP 100/50
--- NOTE | 2016-10-15 20:58 | NUR ---
BLOOD PRESSURE REMAINS ON THE THE LOW SIDE.NURSE OFFICE AWARE,NO SYMPTOMS.BLOOD SUGAR 77.GIVEN APPLE SAUCE AND ALSO APPLE JUICE,SHE SWALLOWS WELL.
--- NOTE | 2016-10-15 23:32 | NUR ---
PATIENT NOW HAS D5 1/2 NS AT 50 CC/ HOUR.
--- NOTE | 2016-10-16 00:46 | NUR ---
NEW IVF D5NS AT 30 CC/ HOUR.DR WALKER WAS HERE,NEPHRO.
--- NOTE | 2016-10-16 02:14 | NUR ---
PATIENT NAUSEATED,GIVEN ZOFRAN AT THIS TIME.FAMILY AT BEDSIDE,SUPPORTIVE OF CARE.PATIENT BP LEMAINS LOW 107/50.BLOOD SUGAR 88 AT THIS TIME.PATIENT IV SITE FLUSHES WELL.
--- NOTE | 2016-10-16 04:29 | NUR ---
IV ON HER RIGHT HAND 24 GUAGE NOT PATENT ANYMORE,IV SITE SWOLLEN,REMOVED.TRIED TO INSERT SEVERAL TIMES,SEVERAL NURSES,VEY HARD STICK.
--- NOTE | 2016-10-16 04:38 | NUR ---
ABLE TO START IV ON HER R WRIST 24 GUAGE,VERY HARD STICK.
--- NOTE | 2016-10-16 04:50 | NUR ---
PATIENT REPOSITIONED,C/O SOB,HOB ELEVATED AND O2 ORDERED.RT TREATMENT ORDERED AND GIVEN.PATIENT REMAINS A MODIFIED CODE.
--- NOTE | 2016-10-16 05:05 | NUR ---
PATIENT FEELT A LOT BETTER AFTER HHN TX AND TOLEARTED WELL.SATURATION 98%MILADIS,DAUGHTER VERY SUPPORTIVE OF CARE.
--- NOTE | 2016-10-16 05:19 | NUR ---
BOTH ARM SWOLLEN FROM PREVIOUS IV SITE.
[2016-10-16 05:50] VITALS: BP 100/50
[2016-10-16 05:59] VITALS: BP 101/54
--- NOTE | 2016-10-16 06:16 | NUR ---
AM LAB WORKS DONE.SITTING UP AT BEDSIDE NOW,WILL DO COMPLETE LINEN CHANGED.IV SITE CHECKED,GOOD AND PATENT.ARMS REMAINS SWOLLEN.AM FOREIGN BANKNOTE TELLER TRADER ALREADY SEEN PATIENT.WILL ENDORSE TO NEXT SHIFT.
[2016-10-16 06:51] LABS: CALCIUM 8.6 mg/dL (8.5-10.1); CARBON DIOXIDE 10.1 mmol/L (21-32); CHLORIDE SERUM 95 mmol/L (98-107); CREATININE SERUM 3.4 mg/dL (0.6-1.0); GLUCOSE SERUM 71 mg/dL (74-106); MAGNESIUM 2.6 mg/dL (1.8-2.4); POTASSIUM SERUM 5.3 mmol/L (3.5-5.1); SODIUM SERUM 130 mmol/L (136-145)
[2016-10-16 07:44] LABS: PHOSPHOROUS 9.4 mg/dL (2.5-4.9)
--- NOTE | 2016-10-16 08:00 | NUR ---
PT AWAKE, RESTLESS, ANXIOUS AND SOB. GOES FROM LAYING DOWN TO SITTING ON EDGE OF BED. SON AT BEDSIDE TO PROVIDE SUPPORT. HOLDS PT ON SIDE OF BED TO MAINTAIN SAFETY. TEMP 97.2 TEMPORAL. TELE #3 PACED 100%. HR=53. RESP 24 SHALLOW WITH SOB. PULSE OX 100% ON OXYGEN 2L NC. BREATH SOUNDS DIMINISHED. ABD SOFT, BOWEL TONES PRESENT. DID NOT EAT BREAKFAST, ONLY HAD SIPS OF MILK. INCONTINENT URINE. TRACE PEDAL EDEMA PRESENT. PULSES PRESENT. SCD IN PLACE. IV PATENT RIGHT WRIST INFUSING D5NS 30CC/HR. PT IS MODIFIED CODE STATUS. SIDE RAILS UP X2. CALL LIGHT IN REACH.
[2016-10-16 08:09] LABS: PLATELET COUNT 264 x10^3mcL (130-400)
[2016-10-16 08:10] LABS: RED CELL DISTRIBUTION WIDTH 17.2 % (11.5-14.5)
--- NOTE | 2016-10-16 08:40 | NUR ---
PAGE TO RT FOR RESP TX. RBS=51MG. TO START D10 SOLUTION PER PROTOCOL.
--- NOTE | 2016-10-16 08:50 | NUR ---
D10 SOLUTION STARTED TO INFUSE 250CC OVER ONE HOUR. IV SITE PATENT. FAMILY AT BEDSIDE. UPDATED WITH PT STATUS.
--- NOTE | 2016-10-16 09:00 | NUR ---
RECHECK BLOOD SUGAR NOW 97MG.
--- NOTE | 2016-10-16 09:10 | NUR ---
DR SIDHU HERE AND UPDATED WITH PT STATUS, HYPOGLYCEMIC LEVEL AT 51, NOW UP TO 97MG. REVIEWED HR=53. BP=88/33. MAP=57. WILL CONTINUE TO MONITOR.
--- NOTE | 2016-10-16 09:15 | NUR ---
DR GIRON AND MEDICAL TEAM IN ON ROUNDS. CHARGE AND PRIMARY NURSE PRESENT. FAMILY AT BEDSIDE. DISCUSSED PT STATUS, MODIFIED CODE STATUS, RESP STATUS AND NEED FOR BIPAP AND IV LASIX. FAMILY VERBALIZED UNDERSTANDING.
--- NOTE | 2016-10-16 09:41 | NUR ---
RT SET UP BIPAP WITH SETTINGS IPAP=12. EPAP=6, RATE 14, [id number]%. PT KEEPS ON FOR SHORT PERIODS OF TIME. REVIEWED WITH FAMILY PURPOSE OF BIPAP AND TO TRY TO KEEP MASK ON MUCH POSSIBLE TO ASSIST WITH BREATHING. VERBALIZED UNDERSTANDING.
--- NOTE | 2016-10-16 09:53 | NUR ---
NEW ORDERS NOTED. MED WITH BUSPAR 5MG PO ORDERED. LASIX 20MG IVP AND ATIVAN 0.5MG IVP GIVEN ORDERED.
[2016-10-16 09:56] VITALS: BP 88/33
--- NOTE | 2016-10-16 10:00 | NUR ---
PT SLIGHTLY MORE RELAXED. ABLE TO LAY DOWN IN BED. INCONTINENT URINE. PERICARE PROVIDED. PAD IN PLACE. REPOSITIONED IN BED WITH HOB ELEVATED 30 DEGREES. BIPAP MASK APPLIED. FAMILY AT BEDSIDE TO PROVIDE COMFORT TO PT.
[2016-10-16 10:27] LABS: BAND NEUTROPHIL 0 % (0-10); BASOPHIL 0 % (0-2); MONOCYTE 8 % (0-7); SEGMENTED NEUTROPHILS 89 % (37-75)
[2016-10-16 10:29] LABS: acanthocyte (spur cell) 3+
[2016-10-16 10:30] LABS: PLATELET MORPHOLOGY PLATELETS NORMAL; rbc morphology (normal/abnorm) ABNORMAL (NORMAL)
--- NOTE | 2016-10-16 10:40 | NUR ---
DR SIDHU HERE IN ROOM TO ASSESS PT AND SPEAK WITH FAMILY. DR UPDATED PT WITH PT STATUS, BP READINGS.
[2016-10-16 11:15] VITALS: BP 62/41
--- NOTE | 2016-10-16 11:15 | NUR ---
RECHECK BLOOD SUGAR=86MG. TEMP 96.8 TEMPORAL. HR=56. BP=79/48. LEFT ARM. RIGHT ARM 62/41. PT SITTING ON EDGE OF BED. RESTLESS. PT REPOSITIONED IN BED WITH PILLOW SUPPORT. IV CONTINUES PATENT. DR SIDHU NOTIFIED.
--- NOTE | 2016-10-16 12:40 | NUR ---
SODIUM BICARB GIVEN. SPOKE WITH TO HOLD KAEXOLATE TIL BMP RESULTS ARE AVAILABLE. LAB TO DRAW BMP AT 1300. PHOSLO STARTED. REMAINS RESTLESS AND SHORT OF BREATH. BIPAP MASK PT WEARS FOR ONLY FEW MINUTES THEN REMOVES. GOES FROM LAYING IN BED TO SITTING ON EDGE OF BED. FAMILY PRESENT.
[2016-10-16 13:20] VITALS: BP 79/48
--- NOTE | 2016-10-16 13:29 | NUR ---
LAB HERE TO DRAW BMP. TONI LABORATORY ENGINEER NURSE SPOKE WITH DR SIDHU TO UPDATE PT STATUS RE:TRANSFER TO ICU. WILL WAIT FOR BMP RESULTS AND RECHECK BLOOD PRESSURE.
--- NOTE | 2016-10-16 13:40 | NUR ---
RT AT BEDSIDE FOR TX. BP LEFT ARM 58/30, RIGHT ARM 77/47. HR=56. NO CHANGE IN PT STATUS. REMAINS RESTLESS WITH SOB. WEARS BIPAP MASK FOR SHORT PERIODS OF TIME. WILL NOTIFY
--- NOTE | 2016-10-16 13:55 | NUR ---
CALL TO LAB FOR BMP RESULTS. NOT AVAILABLE YET. CALL TO DR SIDHU. UPDATED WITH PT STATUS AND VITAL SIGNS. WE BE OVER TO SEE PT.
[2016-10-16 14:39] LABS: CALCIUM 8.6 mg/dL (8.5-10.1); CHLORIDE SERUM 94 mmol/L (98-107); CREATININE SERUM 3.6 mg/dL (0.6-1.0); GLUCOSE SERUM 65 mg/dL (74-106); POTASSIUM SERUM 5.3 mmol/L (3.5-5.1); SODIUM SERUM 132 mmol/L (136-145)
--- NOTE | 2016-10-16 14:45 | NUR ---
HR=53, 100% PACED. RESP 20. BP=84/22. MAP=36. PT NOW LETHARGIC, OPENS EYES BRIEFLY TO VERBAL STIMULI AND DOES NOT RESPOND VERBALLY. REPOSITIONED IN BED. NO LONGER AGITATED AND REMOVING BIPAP. ALLOWS NURSE TO REAPPLY BIPAP AT THIS TIME. SONS AT BEDSIDE. PAGE TO DR SIHDU.
[2016-10-16 14:53] LABS: CARBON DIOXIDE 8.8 mmol/L (21-32)
--- NOTE | 2016-10-16 15:05 | NUR ---
DR SIDHU AND DR WATKINS AT BEDSIDE TO ASSESS PT AND SPEAK WITH FAMILY. UPDATED ON PTS DECLINE IN STATUS. AWAITING ARRIVAL OF OTHER FAMILY MEMBER. DR BARBOZA AND DR GUERRERO HERE TO DISCUSS PLAN OF CARE.
--- NOTE | 2016-10-16 15:30 | NUR ---
DR MUNIZ'S ORDERS NOTED. CLARIFIED WITH DR SIDHU RE:SECOND BICARB, LASIX, URINARY BLADDER US AND BMP. TO HOLD THIS TIME DUE TO PTS DECLINE IN STATUS.
--- NOTE | 2016-10-16 16:30 | NUR ---
IV CONVERTED TO SALINE LOCK. PT ON OXYGEN 2L NC AT THIS TIME. HOB ELEVATED WITH FAMILY COMFORTING AND HUGGING PT. APPLIES BIPAP AT INTERVALS PT TOLERATES. FAMILY REPORTS "SHE IS A LITTLE ANXIOUS." INFORMED THAT WOULD LIKE TO CHECK BLOOD SUGAR BUT FAMILY DECLINES. PT IS DNR. PURPLE ARMBAND APPLIED. WILL CONTINUE TO MONITOR.
--- NOTE | 2016-10-16 16:32 | NUR ---
DR GUERRERO AND DR BARBOZA IN TO SPEAK WITH FAMILY. CHARGE NURSE TONI CAN PRESENT.
--- NOTE | 2016-10-16 16:41 | NUR ---
DR ADAN, DR BARBOZA AND AUDIT SPEC PRESENT AT BEDSIDE. PER PATIENT'S CHILDREN/DECISION MAKERS (NORMA VASQUEZ, VALENTINA) THEY ALL AGREE THEY ARE ON THE SAME PAGE WITH DECISIONS. THEY ARE AWARE OF THE CURRENT STATUS OF PATIENT AND PROBABLE OUTCOME. PER CHILDREN, NO INTERVENTION REQUESTED IF PATIENT WERE TO GO ON ARREST, BUT THEY ARE OKAY WITH BIPAP. PATIENT CURRENTLY ON BIPAP AND KEEPS IT ON AND OFF, CHILDREN AWARE. IV TO RT WRIST HEPLOCKED. GRIEVANCE TRAY IN ROOM.
--- NOTE | 2016-10-16 17:18 | NUR ---
CALL FROM EVALUATOR RE:ASYSTOLE READING. WENT TO ASSESS PT. NO RESP OR HEARTRATE NOTED. COLOR CYANOTIC. PAGE TO DR SIDHU.
--- NOTE | 2016-10-16 17:20 | NUR ---
DR GIRON HERE MADE AWARE.
--- NOTE | 2016-10-16 17:25 | NUR ---
SPOKE WITH DR SIHDU, UPDATED WITH PT STATUS. WILL BE OVER TO SEE PT AND SPEAK WITH FAMILY.
--- NOTE | 2016-10-16 17:26 | NUR ---
DR SIDHU AND DR SIDDIQUI HERE. VIEWED RHYTHM STRIP.
--- NOTE | 2016-10-16 18:00 | NUR ---
CALL TO [facility] OFFICE SPOKE WITH VIVIAN. INFORMATION PROVIDED. WILL HAVE DUMPSTER OPERATOR CALL HERE TO HOSPITAL.
--- NOTE | 2016-10-16 18:10 | NUR ---
SPOKE WITH LITZY WITH [facility]. NOT A CANDIDATE. CASE IS CLOSED. REFERENCE #[id number].
--- NOTE | 2016-10-16 19:00 | NUR ---
SPOKE SHANE BACON WITH [facility]. PT IS NOT A [facility] CASE. RELEASE NUMBER [id number]. BODY OK TO BE RELEASED. SPOKE WITH SON VALENTINA AND PAPER WORK SIGNED AND COMPLETED. MORTUARY LISTED [employer]. FAMILY HAS BEEN IN CONTACT WITH THEM. THEY WILL COME TOMORROW. PT HAS DENTURES IN MOUTH. SPOKE WITH VALENTINA RE:NEED TO PROVIDE POST MORTUM CARE. WILL HAVE FAMILY COMPLETE THEIR VISIT SOON POSSIBLE. QUESTIONS ANSWERED, EMOTIONAL SUPPORT PROVIDED. SPOKE WITH ISABEL RN RESOURCE NURSE. HE WILL ASSIST WITH POST MORTUM CARE NOW THAT BODY HAS BEEN RELEASED BY THE [employer] ARCHITECT.
--- NOTE | 2016-10-16 19:30 | NUR ---
REPORT TO ALEXA SWITCH OPERATORRN CHRONIC. ALSO SPOKE WITH [facility] CAN RN CHRONIC. SOME FAMILY MEMBERS STILL AT BEDSIDE. ENCOURAGED NEED FOR POST MORTUM CARE. VERBALIZED UNDERSTANDING.
== END 2016-10-16 17:32 | disposition expired | DRG 682 ==
LOC: ED 10:43 → IC 13:05 → DU 13:05 → IC 10-14 06:33 → DU 10-15 11:32
PROVIDERS: Emergency Medicine; Internal Medicine; ADMIT Family Medicine
DX: N17.0 Acute kidney failure with tubular necrosis (principal); I50.43 Acute on chronic combined systolic (congestive) and diastolic (congestive) heart failure; E87.2 Acidosis; E87.1 Hypo-osmolality and hyponatremia; I11.0 Hypertensive heart disease with heart failure; I35.0 Nonrheumatic aortic (valve) stenosis; E87.6 Hypokalemia; E83.39 Other disorders of phosphorus metabolism; E83.41 Hypermagnesemia; J44.9 Chronic obstructive pulmonary disease, unspecified; I25.10 Atherosclerotic heart disease of native coronary artery without angina pectoris; E78.5 Hyperlipidemia, unspecified; D64.9 Anemia, unspecified; E66.9 Obesity, unspecified; Z68.35 Body mass index [BMI] 35.0-35.9, adult; Z95.0 Presence of cardiac pacemaker; Z66 Do not resuscitate; Z51.5 Encounter for palliative care
CPT/HCPCS: 82962; 83880; 84439; J0610; J1815; J1940; J2060; J2270; J2405; J3010; J3490; J7030; J7042; J7050; J7620; Q0092